=== PATIENT | female | born 1955 | race Caucasian/White ===

== ENCOUNTER 2017-08-25 07:45 | Emergency (ER) | payer OTHER ==
[~2017-08-25] VITALS: Ht 162.6 cm; Wt 55.8 kg
[~2017-08-25 07:45] MED LIST: ALBUTEROL INHAL17 GM IH; LEVAQUIN 750 M750 MG PO; MEDROL DOSPAK21 TA1 PO; MUCINEX TA600 MG/TA1; SUDAFED 12 HR120 MG
[2017-08-25] MEDS ORDERED: LEXAPRO20 MG (08:03)
[2017-08-25] MEDS ORDERED: PREDNISONE 10 M10 M1 PO (08:13)
[2017-08-25 09:22] VITALS: BP 135/75
[2017-08-25 09:48] LABS: ABSOLUTE NEUTROPHILS 3.2 thou/uL (1.4-8.2); BASOPHILS 0.9 % (0.0-2.0); EOSINOPHILS 0.9 % (0.0-3.0); HEMATOCRIT 38.8 % (37.0-47.0); HEMOGLOBIN 13.1 gm/dL (12.0-15.0); LYMPHOCYTES 22.9 % (24.0-44.0); MCH 29.3 pg (26.0-34.0); MCHC 33.7 g/dL (28.0-37.0); MCV 86.8 fL (80.0-100.0); MONOCYTES 7.2 % (1.0-8.0); PLATELET COUNT 248 thou/uL (150-400); POLYS 68.1 % (36.0-66.0); RBC 4.48 mil/uL (4.20-5.00); RDW 14.1 % (10.5-14.5); WBC 4.8 thou/uL (4.0-11.0)
[2017-08-25 09:51] LABS: MANUAL DIFF NO
== END 2017-08-25 09:22 | disposition home or self-care (01) ==
LOC: ER 07:45
PROVIDERS: Emergency Medicine
DX: T78.40XA Allergy, unspecified, initial encounter (principal); Z88.2 Allergy status to sulfonamides; X58.XXXA Exposure to other specified factors, initial encounter

== ENCOUNTER 2019-06-12 19:12 | Emergency (ER) | payer OTHER ==
[~2019-06-12] VITALS: Ht 162.6 cm; Wt 53.1 kg
[~2019-06-12 19:12] MED LIST changes: +LEXAPRO20 MG; +PREDNISONE 10 M10 M1 PO
[2019-06-12] MEDS ORDERED: B COMPLEX1 EACH PO (19:19)
[2019-06-12 21:09] VITALS: BP 140/78
== END 2019-06-12 21:17 | disposition home or self-care (01) ==
LOC: ER 19:12
DX: S93.491A Sprain of other ligament of right ankle, initial encounter (principal); S90.31XA Contusion of right foot, initial encounter; M79.604 Pain in right leg; Z87.891 Personal history of nicotine dependence; Z79.899 Other long term (current) drug therapy; Z88.2 Allergy status to sulfonamides; V03.99XA Pedestrian with other conveyance injured in collision with car, pick-up truck or van, unspecified whether traffic or nontraffic accident, initial encounter; Y93.01 Activity, walking, marching and hiking; Y92.413 State road as the place of occurrence of the external cause; Y99.9 Unspecified external cause status

== ENCOUNTER → 2019-09-05 | Outpatient (CLI) | payer OTHER ==
[~2019-09-05] MED LIST changes: +B COMPLEX1 EACH PO
== END ==
LOC: MRI 09:47
DX: S90.31XD Contusion of right foot, subsequent encounter (principal); M20.5X1 Other deformities of toe(s) (acquired), right foot; X58.XXXD Exposure to other specified factors, subsequent encounter

== ENCOUNTER → 2020-01-19 | Outpatient (CLI) | payer OTHER | LOC: ULTRA 13:52 | DX: R60.0 Localized edema (principal) ==

== ENCOUNTER 2020-11-23 13:00 | Emergency (ER) | payer OTHER ==
[~2020-11-23] VITALS: Ht 157.5 cm; Wt 49.0 kg
[2020-11-23 15:13] VITALS: BP 122/81
== END 2020-11-23 15:13 | disposition home or self-care (01) ==
LOC: ER 13:00
DX: J06.9 Acute upper respiratory infection, unspecified (principal); Z79.899 Other long term (current) drug therapy; Z88.2 Allergy status to sulfonamides; Z87.891 Personal history of nicotine dependence; Z20.828 Contact with and (suspected) exposure to other viral communicable diseases